=== PATIENT | male | born 1985 | race Caucasian/White ===

== ENCOUNTER 2018-02-05 22:05 | Emergency (ER) | payer OTHER ==
[~2018-02-05] VITALS: Ht 172.7 cm; Wt 122.5 kg
[2018-02-05 22:32] LABS: ABSOLUTE BASOPHILS 0.1 thou/uL (0.0-0.2); ABSOLUTE LYMPHOCYTES 2.1 thou/uL (0.8-5.3); ABSOLUTE MONOCYTES 0.5 thou/uL (0.0-1.2); BASOPHILS 0.7 %; EOSINOPHILS 0.6 %; HEMATOCRIT 45.1 % (42.0-52.0); HEMOGLOBIN 16.1 gm/dL (14.0-18.0); LYMPHOCYTES 27.1 %; MCH 31.5 pg (26.0-34.0); MCHC 35.6 g/dL (28.0-37.0); MCV 88.4 fL (80.0-100.0); MONOCYTES 6.1 %; NUCLEATED RBCS 0 /100WBC; PLATELET COUNT* 339 thou/uL (150-400); POLYS 65.5 %; RDW-CV 12.4 % (10.5-14.5); WBC 7.6 thou/uL (4.0-11.0)
[2018-02-05 22:40] LABS: ANION GAP 3 mmol/L (7-16); BUN 9 mg/dL (7-18); CALCIUM 9.3 mg/dL (8.5-10.1); CHLORIDE 104 mmol/L (98-107); CO2 32 mmol/L (21-32); CREATININE 0.9 mg/dL (0.6-1.3); GLUCOSE 94 mg/dL (70-99); POTASSIUM 3.6 mmol/L (3.5-5.1); SODIUM 139 mmol/L (136-145)
[2018-02-05 22:50] LABS: ALBUMIN 4.4 g/dL (3.4-5.0); ALKALINE PHOSPHATASE 72 U/L (46-116); LIPASE 102 U/L (73-393); MAGNESIUM 1.8 mg/dL (1.8-2.4); SGOT 42 U/L (15-37); SGPT 117 U/L (30-65); TOTAL BILIRUBIN 0.5 mg/dL (<0.1-1.0); TOTAL PROTEIN 7.9 g/dL (6.4-8.2); TROPONIN-I LEVEL <0.06 ng/mL (<0.06)
[2018-02-06 01:33] VITALS: BP 180/105
--- NOTE | 2018-02-06 12:07 | EKG ---
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
--- NOTE | 2018-02-06 12:11 | EKG ---
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
== END 2018-02-06 01:30 | disposition home or self-care (01) ==
LOC: M.ERS 22:05
PROVIDERS: Emergency Medicine Emergency Medical Services
DX: R07.89 Other chest pain (principal); I10 Essential (primary) hypertension; Z91.09 Other allergy status, other than to drugs and biological substances